=== PATIENT | male | born 2000 | race African-American/Black ===

== ENCOUNTER 2024-08-07 17:52 | Observation (INO) | payer SELFPAY ==
[~2024-08-07 17:52] MED LIST: Iopamidol 370 76% 100 ML VIAL ONE
[2024-08-07] MEDS ORDERED: Ketorolac Tromethamine 30 MG (1 mL) VIAL ONE (20:02)
[2024-08-07] MEDS ORDERED: Ondansetron PF 4 MG/2 ML Vial ONE (20:02)
[2024-08-07 20:18] LABS: #Basophils 0.03 10x3/uL (0.0-0.2); #Eosinophils 0.01 10x3/uL (0.0-0.5); #Monocytes 0.92 10x3/uL (0.0-1.1); #Neutrophils 8.94 10x3/uL (1.5-8.4); %Basophils 0.3 % (0.0-2.0); %Eosinophils 0.1 % (0.0-6.0); %Lymphocytes 13.4 % (18.0-47.0); %Neutrophils 77.9 % (40.0-75.0); Hematocrit 43.5 % (38.8-50.0); Hemoglobin 15.2 g/dL (13.5-17.5); Mean Corpuscular HGB CONC 34.9 g/dL (32.0-36.0); Mean Corpuscular Hemoglobin 31.5 pg (27.0-33.0); Mean Corpuscular Volume 90.2 fL (81.2-95.1); Mean Platelet Volume 10.7 fL (7.4-10.4); Platelet Count 241 10x3/uL (150-450); RBC Distribution Width 12.4 % (11.5-14.5); Red Blood Cell (RBC) Count 4.82 10x6/uL (4.32-5.72); White Blood Cell (WBC) Count 11.5 10x3/uL (3.5-10.5)
[2024-08-07 20:19] LABS: ALT (SGPT) 38 U/L (8-55); AST (SGOT) 21 U/L (5-34); Albumin 4.6 g/dL (3.5-5.0); Alkaline Phosphatase 70 U/L (40-110); Anion Gap 19 mmol/L (10-20); BUN (Urea Nitrogen) 22 mg/dL (8.9-20.6); Bilirubin, Total 0.4 mg/dL (0.2-1.2); Calc. Creatinine Clearance 0 mL/min (70-130); Calcium 10.2 mg/dL (7.8-10.44); Carbon Dioxide 20 mmol/L (22-29); Chloride 104 mmol/L (98-107); Estimated GFR 69; Globulin 3.2 g/dL (2.4-3.5); Glucose 110 mg/dL (70-105); Lipase 18 U/L (8-78); Magnesium 1.9 mg/dL (1.6-2.6); Potassium 3.8 mmol/L (3.5-5.1); Protein, Total 7.8 g/dL (6.0-8.3); Sodium 139 mmol/L (136-145)
[2024-08-07] MEDS ORDERED: Polyethylene Glycol 3350 17 GM Packet PO SCH (21:00)
[2024-08-07 21:38] LABS: Bilirubin Neg (Negative); Blood, Urine 25 (Negative); Clarity Clear (Clear); Glucose, Urine (Dipstick) Normal (Negative); Ketone, Urine 150 mg/dL (Negative); Leukocyte Negative (Negative); Nitrite Negative (Negative); Protein, Urine (Dipstick) 15 mg/dl (Neg-Trace); Urobilinogen Normal mg/dL (Less than 2)
[2024-08-07] MEDS ORDERED: Piperacillin/Tazobactam 4.5 GM VIAL ONE (21:59)
[2024-08-07] MEDS ORDERED: Morphine 2 MG/ML VIAL ONE (21:59)
[2024-08-07 22:20] LABS: CAUTI Indications for Culture Pelvic or flank pain; RBC/HPF 0-3 HPF (0-3); Squamous Epithelial 0-3 HPF (0-3); WBC/HPF 0-3 HPF (0-3)
[2024-08-07 22:21] LABS: Bacteria/HPF Rare-Few HPF (None Seen); Mucous/LPF 1+ LPF (<2+)
[2024-08-07 22:22] LABS: Urine Culture Reflex No No
[2024-08-08] MEDS ORDERED: Morphine 2 MG/ML VIAL ONE ×2 (01:48→09:10)
[2024-08-08] MEDS ORDERED: Ketorolac Tromethamine 30 MG (1 mL) VIAL ONE (03:38)
[2024-08-08] MEDS ORDERED: Bupivacaine HCl 0.5%/Epinephrine 1:200,000/PF 30 ml Vial ONE (07:16)
[2024-08-08] MEDS ORDERED: Piperacillin/Tazobactam 4.5 GM VIAL ONE (07:44)
[2024-08-08] MEDS ORDERED: Dexmedetomidine 200 MCG/2 ML VIAL ONE (08:35)
[2024-08-08] MEDS ORDERED: PROPOFOL 20 ML ONE (08:35)
[2024-08-08] MEDS ORDERED: fentaNYL 50 mcg/mL 1 mL Vial ONE ×3 (08:41→12:19)
[2024-08-08] MEDS ORDERED: Acetaminophen 500 MG TAB ONE (09:27)
[2024-08-08] MEDS ORDERED: Ondansetron PF 4 MG/2 ML Vial ONE (11:17)
[2024-08-08] MEDS ORDERED: Rocuronium Bromide 10 MG/ML (10ML VIAL) ONE (11:17)
[2024-08-08] MEDS ORDERED: PHENYLEPHRINE-NS 100 MCG/ML 10 ML SYRINGE ONE (11:17)
[2024-08-08] MEDS ORDERED: SUCCINYLCHOLINE/SOD CL,ISO/PF 200 MG/10 ML SYRINGE FS ONE (11:17)
[2024-08-08] MEDS ORDERED: Dexamethasone 4 mg/ml Vial ONE (11:17)
[2024-08-08] MEDS ORDERED: Lidocaine 1% PF 5 ML VIAL ONE (11:17)
== END 2024-08-08 13:15 | disposition home or self-care (01) ==
LOC: CSHERS 17:52 → CSHERHOLD 22:07
PROVIDERS: ADMIT Surgery; ATTEND Surgery
PROC: 0DTJ0ZZ Resection of Appendix, Open Approach (ICD-10-PCS; principal; 2024-08-08)
DX: K35.80 Unspecified acute appendicitis (principal); J45.909 Unspecified asthma, uncomplicated; Z79.51 Long term (current) use of inhaled steroids; Z79.899 Other long term (current) drug therapy
CPT/HCPCS: 36415; 74177; 80053; 81001; 83605; 83690; 83735; 85025; 88304; 96361; 96374; 96375; 96376; A4649; J1100; J1885; J2272; J2405; J2543; J2704; J3010; Q9967